=== PATIENT | male | born 1955 | race Caucasian/White ===

== ENCOUNTER 2018-11-09 16:46 | Emergency (ER) | payer OTHER, SELFPAY ==
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
[2018-11-09 16:50] VITALS: BP 168/107; PULSE 95; RESP 16; TEMP 37.1; O2SAT 95; BMI 25.8
[2018-11-09] MEDS: MORPHINE 4 MG/ML INJ IV (17:43)
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
[2018-11-09] MEDS: TET,DIPH,PERTUSS(ACELL),VAC/PF 0.5 ML SYRINGE IM (18:43)
== END 2018-11-09 18:53 | disposition home or self-care (01) ==
PROVIDERS: Emergency Provider Emergency Medicine
DX: S52.292A Other fracture of shaft of left ulna, initial encounter for closed fracture (principal); V49.40XA Driver injured in collision with unspecified motor vehicles in traffic accident, initial encounter
CPT/HCPCS: 73090; 90471; 96374; 99282; 99284; 90715; J2270